=== PATIENT | female | born 1980 | race African-American/Black ===

== ENCOUNTER 2019-03-13 19:55 | Observation (INO) | payer MEDICAID ==
[~2019-03-13] VITALS: Ht 162.6 cm; Wt 66.7 kg
[2019-03-13] MEDS ORDERED: PREN1TAB78 MT (20:21)
[2019-03-13] MEDS ORDERED: LACTATED RINGERS 1,000 ML IV ONE (21:22)
[2019-03-13] MEDS ORDERED: LACTATED RINGERS 1,000 ML IV SCH (21:22)
[2019-03-13] MEDS ORDERED: ACETAMINOPHEN 500MG TABLET PO ONE (21:30)
[2019-03-13 22:12] LABS: CLARITY URINE CLEAR (CLEAR); COLOR URINE YELLOW (YELLOW); KETONES URINE NEGATIVE (NEGATIVE); LEUKOCYTE ESTERASE URINE 1+ (NEGATIVE); NITRITE URINE NEGATIVE (NEGATIVE); OCCULT BLOOD URINE NEGATIVE (NEGATIVE); PROTEIN URINE NEGATIVE (NEGATIVE); SPECIFIC GRAVITY URINE 1.005 (1.005-1.030); UROBILINOGEN URINE 0.2 E.U./dL (0.2-1.0)
[2019-03-13] MEDS ORDERED: TERBUTALINE SULFATE 1MG/ML VIAL SUBCUT PRN (22:30)
== END 2019-03-14 01:03 | disposition home or self-care (01) ==
LOC: 8 EST LDRP 19:55
PROVIDERS: ADMIT Obstetrics & Gynecology; ATTEND Obstetrics & Gynecology
DX: O26.893 Other specified pregnancy related conditions, third trimester (principal); M54.9 Dorsalgia, unspecified; R10.30 Lower abdominal pain, unspecified; R35.0 Frequency of micturition; Z3A.34 34 weeks gestation of pregnancy
CPT/HCPCS: 81003; 96361; 96372; 99281; G0378; J3105; 96360

== ENCOUNTER 2019-04-25 14:12 | Inpatient (IN) | payer MEDICAID ==
[~2019-04-25] VITALS: Ht 162.6 cm; Wt 72.1 kg
[~2019-04-25 14:12] MED LIST: PREN1TAB78 MT
[2019-04-25] MEDS ORDERED: DEXT 5%/LR + PITOCIN 20UNITS/L 1,000 ML IV SCH (14:59)
[2019-04-25] MEDS ORDERED: BUTORPHANOL TARTRATE 2 MG/ML VIAL IV PRN (15:00)
[2019-04-25] MEDS ORDERED: MISOPROSTOL 200MCG TABLET VG PRN (15:00)
[2019-04-25] MEDS ORDERED: LIDOCAINE HCL 1% 20ML VIAL (Pyxis) INJ INFIL PRN (15:00)
[2019-04-25] MEDS ORDERED: METHYLERGONOVINE MALEATE 0.2 MG/ML IM PRN (15:00)
[2019-04-25] MEDS ORDERED: PENICILLIN G POTASSIUM 5 MMU in DEXT 5% WATER 100 ML IV SCH (15:00)
[2019-04-25] MEDS ORDERED: CARBOPROST TROMETHAMINE 250 MCG/ML AMPUL IM PRN (15:00)
[2019-04-25] MEDS ORDERED: NALOXONE HCL 0.4 MG/ML 1ML VIAL IM PRN (15:00)
[2019-04-25] MEDS ORDERED: LACTATED RINGERS 1,000 ML IV SCH (15:05)
[2019-04-25 15:40] LABS: BASOPHILS % 0.4 % (0.0-2.0); EOSINOPHILS % 0.3 % (0.0-5.0); HEMATOCRIT. 42.3 % (36.0-48.0); HEMOGLOBIN. 14.2 g/dL (12.0-16.0); LYMPHOCYTES % 14.3 % (20.0-50.0); MEAN CORPUSCULAR HEMOGLOBIN 29.1 pg (28.0-32.0); MEAN CORPUSCULAR VOLUME 87.1 fL (81.0-99.0); MEAN PLATELET VOLUME 10.9 fl (7.4-10.4); MONOCYTES % 6.8 % (2.0-8.0); NEUTROPHILS % 78.2 % (40.0-76.0); PLATELET 139 x1000/uL (130-400); RED BLOOD CELL COUNT 4.86 mill/uL (4.2-5.4); RED CELL DISTRIBUTION WIDTH 13.5 % (11.6-14.6)
[2019-04-25 15:48] LABS: INR 0.9; PARTIAL THROMBOPLASTIN TIME 29.6 sec (23.4-31.0); PROTHROMBIN TIME 9.5 sec (9.6-11.0)
[2019-04-25] MEDS ORDERED: BENZOCAINE/LANOLIN/ALOE VERA SPRAY TOP PRN (16:15)
[2019-04-25] MEDS ORDERED: IBUPROFEN 400MG TABLET PO PRN (16:15)
[2019-04-25] MEDS ORDERED: IBUPROFEN 800MG TABLET PO PRN (16:15)
[2019-04-25] MEDS ORDERED: RHO(D) IMMUNE GLOBULIN 300 MCG/SYR IM PRN (16:15)
[2019-04-25 16:17] LABS: HEPATITIS B SURFACE ANTIGEN NEGATIVE
[2019-04-25] MEDS: DEXT 5%/LR + PITOCIN 20UNITS/L 1,000 ML IV SCH ×3 (16:24→21:02)
[2019-04-25 17:45] VITALS: BP 111/58
[2019-04-25 18:20] VITALS: BP 109/69
[2019-04-25] MEDS ORDERED: PENICILLIN G POTASSIUM 2.5 MMU in DEXTROSE 5% WATER 50 ML IV SCH (19:00)
[2019-04-25 20:00] VITALS: BP 119/54
[2019-04-25 21:03] LABS: CLARITY URINE CLOUDY (CLEAR); COLOR URINE RED (YELLOW); KETONES URINE NEGATIVE (NEGATIVE); LEUKOCYTE ESTERASE URINE 1+ (NEGATIVE); NITRITE URINE NEGATIVE (NEGATIVE); OCCULT BLOOD URINE 3+ (NEGATIVE); PROTEIN URINE 2+ (NEGATIVE); SPECIFIC GRAVITY URINE 1.007 (1.005-1.030); UROBILINOGEN URINE 0.2 E.U./dL (0.2-1.0)
[2019-04-25 21:17] LABS: *AMPHETAMINES SCREEN URINE NEGATIVE (NEGATIVE); *BARBITURATES SCREEN URINE NEGATIVE (NEGATIVE); *BENZODIAZEPINES SCREEN URINE NEGATIVE (NEGATIVE); *COCAINE SCREEN URINE NEGATIVE (NEGATIVE); METHADONE URINE SCREEN NEGATIVE (NEGATIVE); OPIATES URINE SCREEN NEGATIVE (NEGATIVE)
[2019-04-25 21:18] LABS: CANNABINOID URINE SCREEN NEGATIVE (NEGATIVE); PHENCYCLIDINE URINE SCREEN NEGATIVE (NEGATIVE)
[2019-04-26 04:00] VITALS: BP 103/67
[2019-04-26 07:33] VITALS: BP 110/67
[2019-04-26 08:00] LABS: BASOPHILS % 0.4 % (0.0-2.0); EOSINOPHILS % 0.9 % (0.0-5.0); HEMATOCRIT. 36.5 % (36.0-48.0); HEMOGLOBIN. 12.6 g/dL (12.0-16.0); LYMPHOCYTES % 11.8 % (20.0-50.0); MEAN CORPUSCULAR HEMOGLOBIN 29.7 pg (28.0-32.0); MEAN CORPUSCULAR VOLUME 86.2 fL (81.0-99.0); MEAN PLATELET VOLUME 10.6 fl (7.4-10.4); MONOCYTES % 7.1 % (2.0-8.0); NEUTROPHILS % 79.8 % (40.0-76.0); PLATELET 135 x1000/uL (130-400); RED BLOOD CELL COUNT 4.23 mill/uL (4.2-5.4); RED CELL DISTRIBUTION WIDTH 13.6 % (11.6-14.6)
[2019-04-26] MEDS ORDERED: INFLUENZA VIRUS VACCINE(AFLURIA) 0.5ML SYR IM ONE (08:00)
[2019-04-26 16:12] VITALS: BP 108/62
[2019-04-26 22:00] VITALS: BP 112/68
[2019-04-27 05:45] VITALS: BP 105/65
[2019-04-27 07:37] VITALS: BP 118/57
[2019-04-27] MEDS ORDERED: IBUP-2030 PO (08:08)
[2019-04-27] MEDS ORDERED: MEDROXYPROGESTERONE ACETATE 150MG/ML VIAL IM NR (09:00)
== END 2019-04-27 16:25 | disposition home or self-care (01) | DRG 560 ==
LOC: OBSVTOIN 14:12 → 8 EST LDRP 14:12 → 8EST 17:40
PROVIDERS: ADMIT Obstetrics & Gynecology; ATTEND Obstetrics & Gynecology
PROC: 10D07Z6 Extraction of Products of Conception, Vacuum, Via Natural or Artificial Opening (ICD-10-PCS; principal; 2019-04-25)
DX: O69.81X0 Labor and delivery complicated by cord around neck, without compression, not applicable or unspecified (principal); Z37.0 Single live birth; Z3A.40 40 weeks gestation of pregnancy
CPT/HCPCS: 36415; 80305; 81003; 85025; 86592; 86703; 86762; 86850; 86900; 87340; 90686; 99281; G0378; J1050; J2540; J2590; J3490; J7060